=== PATIENT | male | born 1990 | race Caucasian/White ===

== ENCOUNTER 2021-08-11 15:59 | Emergency (ER) | payer OTHER ==
[2021-08-11] MEDS ORDERED: Ibuprofen 800 MG Tab PO ONE (17:08)
== END 2021-08-11 18:30 | disposition home or self-care (01) ==
LOC: JD.ED 15:59
DX: S69.92XA Unspecified injury of left wrist, hand and finger(s), initial encounter (principal); Z86.16 Personal history of COVID-19; W23.1XXA Caught, crushed, jammed, or pinched between stationary objects, initial encounter
CPT/HCPCS: 73130-26-LT; 73130-LT; 99283; 99283-25; A9270-GY

== ENCOUNTER 2024-09-26 01:48 | Emergency (ER) | payer OTHER ==
[2024-09-26] MEDS: Diphtheria,Pertussis(Acell),Tetanus Vaccine 0.5 ML Syringe IM ONE (02:22)
[2024-09-26 02:52] LABS: HEPATITIS C AB NON-REACTIVE (Non-React)
[2024-09-26 02:53] LABS: HIV RAPID SCREEN RLFX COMFIRM NON-REACTIVE (Non-React)
[2024-09-27 18:42] LABS: HBS AB >1000.00 IU/L
== END 2024-09-26 02:28 | disposition home or self-care (01) ==
LOC: JD.ED 01:48
DX: S91.331A Puncture wound without foreign body, right foot, initial encounter (principal); Z77.21 Contact with and (suspected) exposure to potentially hazardous body fluids; Z23 Encounter for immunization; W45.0XXA Nail entering through skin, initial encounter; Y93.89 Activity, other specified
CPT/HCPCS: 36415; 86706; 86803; 90471; 90715; 99283; 99283-25; G0433

== ENCOUNTER 2024-11-06 18:40 | Emergency (ER) | payer OTHER ==
[2024-11-06] MEDS: Amoxicillin/Clavulanate K 875-125 MG Tab PO ONE (19:28)
== END 2024-11-06 19:30 | disposition home or self-care (01) ==
LOC: JD.ED 18:40
DX: S41.152A Open bite of left upper arm, initial encounter (principal); Z86.16 Personal history of COVID-19; W54.0XXA Bitten by dog, initial encounter
CPT/HCPCS: 99283; A9270